=== PATIENT | female | born 1965 | race Caucasian/White ===

== ENCOUNTER → 2018-07-25 | Outpatient (REF) | LOC: M LAB LCGH 11:28 | PROVIDERS: ATTEND Specialist | DX: M17.11 Unilateral primary osteoarthritis, right knee (principal) ==

== ENCOUNTER 2019-12-24 23:13 | Emergency (ER) | payer OTHER ==
[~2019-12-24] VITALS: Ht 162.6 cm; Wt 68.2 kg
[2019-12-25 00:18] LABS: HEMATOCRIT 43.7 % (36.0-47.0); HEMOGLOBIN 14.6 g/dl (12.0-15.5); MEAN CORPUSCULAR HEMOGLOBIN 34.1 pg (27.0-33.0); MEAN CORPUSCULAR HGB CONC 33.4 g/dl (32.0-36.5); MEAN CORPUSCULAR VOLUME 102.1 fl (80.0-96.0); PLATELET COUNT, AUTOMATED 218 10^3/uL (150-450); RED BLOOD COUNT 4.28 10^6/uL (4.00-5.40)
[2019-12-25 00:23] LABS: AMPHETAMINES LEVEL URINE NEGATIVE (NEGATIVE); BARBITURATES URINE NEGATIVE (NEGATIVE); BENZODIAZEPINES URINE NEGATIVE (NEGATIVE); CANNABINOIDS URINE NEGATIVE (NEGATIVE); COCAINE METABOLITE URINE NEGATIVE (NEGATIVE); METHADONE URINE NEGATIVE (NEGATIVE); OPIATES URINE NEGATIVE (NEGATIVE); PHENCYCLIDINE URINE NEGATIVE (NEGATIVE)
[2019-12-25 00:40] LABS: HCG, SERUM QUALITATIVE NEGATIVE (NEGATIVE)
[2019-12-25] MEDS ORDERED: ALPR0.25 PO (00:42)
[2019-12-25] MEDS ORDERED: BAYE325T16 PO (00:42)
[2019-12-25 00:47] LABS: ACETAMINOPHEN LEVEL < 2.0 UG/ML (10.0-30.0); ALBUMIN 3.8 GM/DL (3.2-5.2); ALT/SGPT 98 U/L (12-78); BILIRUBIN,DIRECT 0.1 MG/DL (0.0-0.2); BILIRUBIN,TOTAL 0.2 MG/DL (0.2-1.0); BLOOD UREA NITROGEN 5 MG/DL (7-18); CALCIUM LEVEL 9.1 MG/DL (8.5-10.1); CARBON DIOXIDE LEVEL 31 MEQ/L (21-32); CHLORIDE LEVEL 106 MEQ/L (98-107); CREATININE FOR GFR 0.48 MG/DL (0.55-1.30); ETHYL ALCOHOL (ETHANOL) 0.405 % (0.000-0.010); GLOMERULAR FILTRATION RATE > 60.0 (>51); GLUCOSE, FASTING 104 MG/DL (70-100); POTASSIUM SERUM 3.9 MEQ/L (3.5-5.1); SALICYLATE LEVEL 5.8 MG/DL (5.0-30.0); SODIUM LEVEL 142 MEQ/L (136-145); TOTAL PROTEIN 7.4 GM/DL (6.4-8.2)
[2019-12-25] MEDS ORDERED: hydrOXYzine 50 MG TAB PO ONE (04:45)
[2019-12-25] MEDS ORDERED: LORazepam 2 MG TAB PO PRN (07:15)
[2019-12-25] MEDS ORDERED: THIAMINE 100 MG TAB PO SCH (09:00)
[2019-12-25] MEDS ORDERED: FOLIC ACID 1 MG TAB PO SCH (09:00)
[2019-12-25] MEDS ORDERED: MULTIVITAMINS/MINERALS THERAP 1 TAB PO SCH (09:00)
[2019-12-25] MEDS ORDERED: IBUPROFEN 400 MG TAB PO ONE (11:00)
--- NOTE | 2019-12-25 11:13 | REPVR ---
PROCEDURE INFORMATION: Exam: XR Left Shoulder Exam date and time: 12/25/2019 11:01 AM Age: 54 years old Clinical indication: Pain; Shoulder; Left; Additional info: Fell a few days ago TECHNIQUE: Imaging protocol: XR Left shoulder. Views: 2 or more views. COMPARISON: No relevant prior studies available. FINDINGS: Bones/joints: Acute appearing fracture of the distal left clavicle, with 2 mm of displacement. This appears to be superimposed on a chronic fracture of the distal left clavicle. No dislocation. Mild acromioclavicular joint DJD. Age-indeterminate nondisplaced fracture of the left 5th lateral rib. Soft tissues: Normal. IMPRESSION: 1. Acute fracture of the distal left clavicle. 2. Age-indeterminate fracture of the left 5th rib. Correlate for corresponding acute focal pain. Electronically signed by: Alaina Edge On 12/25/2019 11:13:05 AM
[2019-12-25] MEDS ORDERED: OXAZEPAM 15 MG CAP PO ONE (14:15)
[2019-12-25 17:27] VITALS: BP 168/94
== END 2019-12-25 17:27 | disposition home or self-care (01) ==
LOC: M ED 23:13
DX: F10.120 Alcohol abuse with intoxication, uncomplicated (principal); F17.200 Nicotine dependence, unspecified, uncomplicated; Z79.82 Long term (current) use of aspirin; Z79.899 Other long term (current) drug therapy
CPT/HCPCS: 36415; 73030; 80048; 80076; 80307; 84443; 84703; 85027; 99284; G0480

== ENCOUNTER 2020-08-25 17:46 | Inpatient (IN) | payer OTHER ==
[~2020-08-25] VITALS: Ht 162.6 cm; Wt 82.7 kg
[~2020-08-25 17:46] MED LIST: ALPR0.25 PO; BAYE325T16 PO
[2020-08-25] MEDS ORDERED: LISI-898 PO (18:21)
[2020-08-25] MEDS ORDERED: LEVE500T5 PO (18:21)
[2020-08-25] MEDS ORDERED: NS 1,000 ML IV ONE ×2 (19:10→21:00)
[2020-08-25 19:46] LABS: HEMATOCRIT 43.8 % (36.0-47.0); HEMOGLOBIN 15.1 g/dl (12.0-15.5); MEAN CORPUSCULAR HEMOGLOBIN 35.1 pg (27.0-33.0); MEAN CORPUSCULAR HGB CONC 34.5 g/dl (32.0-36.5); MEAN CORPUSCULAR VOLUME 101.9 fl (80.0-96.0); PLATELET COUNT, AUTOMATED 200 10^3/uL (150-450); WHITE BLOOD COUNT 7.3 10^3/uL (4.0-10.0)
[2020-08-25 20:31] LABS: ACETAMINOPHEN LEVEL < 2.0 UG/ML (10.0-30.0); ALBUMIN 3.5 GM/DL (3.2-5.2); ALT/SGPT 37 U/L (12-78); BILIRUBIN,DIRECT 0.2 MG/DL (0.0-0.2); BILIRUBIN,TOTAL 0.6 MG/DL (0.2-1.0); BLOOD UREA NITROGEN 9 MG/DL (7-18); CALCIUM LEVEL 8.7 MG/DL (8.5-10.1); CARBON DIOXIDE LEVEL 27 MEQ/L (21-32); CHLORIDE LEVEL 97 MEQ/L (98-107); CPK CREATINE PHOSPHOKINASE 87 U/L (26-192); CREATININE FOR GFR 1.57 MG/DL (0.55-1.30); ETHYL ALCOHOL (ETHANOL) 0.356 % (0.000-0.010); GLOMERULAR FILTRATION RATE 36.4 (>51); GLUCOSE, FASTING 95 MG/DL (70-100); POTASSIUM SERUM 3.1 MEQ/L (3.5-5.1); SALICYLATE LEVEL 2.3 MG/DL (5.0-30.0); SODIUM LEVEL 135 MEQ/L (136-145); TOTAL PROTEIN 7.2 GM/DL (6.4-8.2)
[2020-08-25] MEDS ORDERED: POTASSIUM CHLORIDE 10 MEQ SR TABLET PO ONE (20:40)
[2020-08-25] MEDS ORDERED: ONDANSETRON 4MG/2ML VIAL IV ONE (22:15)
[2020-08-25] MEDS ORDERED: NS 500 ML IV ONE (22:35)
[2020-08-26 07:10] LABS: BLOOD UREA NITROGEN 9 MG/DL (7-18); CALCIUM LEVEL 7.6 MG/DL (8.5-10.1); CARBON DIOXIDE LEVEL 27 MEQ/L (21-32); CHLORIDE LEVEL 106 MEQ/L (98-107); CREATININE FOR GFR 0.69 MG/DL (0.55-1.30); ETHYL ALCOHOL (ETHANOL) < 0.003 % (0.000-0.010); GLOMERULAR FILTRATION RATE > 60.0 (>51); GLUCOSE, FASTING 93 MG/DL (70-100); POTASSIUM SERUM 3.6 MEQ/L (3.5-5.1); SODIUM LEVEL 140 MEQ/L (136-145)
[2020-08-26] MEDS ORDERED: LORazepam 2 MG TAB PO PRN ×2 (08:10→20:05)
[2020-08-26] MEDS ORDERED: FOLIC ACID 1 MG TAB PO SCH (09:00)
[2020-08-26] MEDS ORDERED: THIAMINE 100 MG TAB PO SCH (09:00)
[2020-08-26] MEDS ORDERED: MULTIVITAMINS/MINERALS THERAP 1 TAB PO SCH (09:00)
[2020-08-26 09:07] LABS: AMPHETAMINES LEVEL URINE NEGATIVE (NEGATIVE); BARBITURATES URINE NEGATIVE (NEGATIVE); BENZODIAZEPINES URINE NEGATIVE (NEGATIVE); CANNABINOIDS URINE NEGATIVE (NEGATIVE); COCAINE METABOLITE URINE NEGATIVE (NEGATIVE); METHADONE URINE NEGATIVE (NEGATIVE); OPIATES URINE NEGATIVE (NEGATIVE); PHENCYCLIDINE URINE NEGATIVE (NEGATIVE)
[2020-08-26] MEDS ORDERED: METOPROLOL TART 50 MG TAB PO ONE (10:35)
[2020-08-26] MEDS ORDERED: MOM 30ML SUSPENSION UDC PO PRN (14:45)
[2020-08-26] MEDS ORDERED: ACETAMINOPHEN TAB 650MG DOSE (2X325MG) PO PRN (14:45)
[2020-08-26] MEDS ORDERED: MAALOX 30 ML SUSP *UDC PO PRN (14:45)
[2020-08-26] MEDS ORDERED: hydrALAZINE 20MG/ML 1ML VIAL (J0360 PER 20MG) IV STA (14:46)
--- NOTE | 2020-08-26 14:48 | HPEPDOC ---
[facility] Medical History & Physical Date of Admission Aug 26, 2020 Date of Service: Aug 26, 2020 History and Physical CHIEF COMPLAINT: Acute alcohol withdrawal HISTORY OF PRESENT ILLNESS: 54-year-old female with history of alcohol use disorder, gastric to [facility] from [facility] after she verbalized suicidal ideation. Patient reports drinking heavily for the past several days after her boyfriend's brother moved in. Patient reports drinking approximately 6 small whiskey bottles, along with an unspecified amount of beer. Last drink was in 07/25/20. Patient denies prior seizures, delirium tremens. Patient was evaluated by psychiatry in the ER and deemed safe for discharge. However, prior to discharge, noted noticed to have hypertensive urgency and worsening symptoms of acute alcohol withdrawal. Hospitalist service will be admitting patient for treatment of hypertensive urgency and acute alcohol withdrawal. On chart review, patient was noted to have hypokalemia and acute injury which have resolved prior to admission from ER. PAST MEDICAL HISTORY: Hypertension Etoh use disorder PAST SURGICAL HISTORY: R knee replacement SOCIAL HISTORY: etoh use disorder occasional smoker denies illicit drug use FAMILY HISTORY: reviewed with, no pertinent history was provided by the patient. ALLERGIES: Please see below. REVIEW OF SYSTEMS: 10 point ROS was completed, relevant findings are noted in the HPI HOME MEDICATIONS: Please see below. PHYSICAL EXAMINATION: VITAL SIGNS: please see below General: NAD, comfortable HEENT: PERRLA, EOMI, sclerae clear Neck: supple, normal ROM, no JVD Respiratory: lungs CTAB, no wheeze, no rales, no crackles CVS: RRR, normal S1, S2, no murmurs Abdo: soft, no masses, no hepatosplenomegaly, BS+, no rebound tenderness Extremities: no edema, pulses 2+ MSK: no joint deformities, normal ROM Neuro: no focal neuro deficits, moving all 4 extremities, CN2-12 intact. Strength 5/5 in all 4 extremities. No nystagmus. Psych: calm, cooperative, AAO x 3. Visibly tremulous, anxious. LABORATORY DATA: See below. MICROBIOLOGY: Please see below. ASSESSMENT: 54-year-old female with history of alcohol use disorder, gastric to [facility] from [facility] after she verbalized suicidal ideation. Patient reports drinking heavily for the past several days after her boyfriend's brother moved in. Patient reports drinking approximately 6 small whiskey bottles, along with an unspecified amount of beer. Last drink was in 07/25/20. Patient denies prior seizures, delirium tremens. Patient was evaluated by psychiatry in the ER and deemed safe for discharge. However, prior to discharge, noted noticed to have hypertensive urgency and worsening symptoms of acute alcohol withdrawal. Hospitalist service will be admitting patient for treatment of hypertensive urgency and acute alcohol withdrawal. On chart review, patient was noted to have hypokalemia and acute injury which have resolved prior to admission from ER. . PLAN: #Acute etoh withdrawal - admit to [facility], with telemetry - [facility] protocol - seizure precautions - c/w b12, folate, MVTs, thiamine - etoh cessation resources on DC #HTN urgency - BP elevated likely 2/2 etoh withdrawa - takes lisinopril 5 mg daily, increase to 10 mg daily - c/w serax #DVT ppx: - heparin 5000 units q8h SC. Vital Signs Vital Signs Date Time Temp Pulse Resp B/P (MAP) Pulse Ox O2 Delivery O2 Flow Rate FiO2 08/26/20 12:37 20 197/114 (141) 96 Room Air 08/26/20 11:00 85 08/25/20 18:21 96.9 Laboratory Data Labs 24H Laboratory Tests 2 08/25/20 19:37: Nucleated Red Blood Cells % (auto) 0.0, Anion Gap 11, Glomerular Filtration Rate 36.4L, Calcium Level 8.7, Total Bilirubin 0.6, Direct Bilirubin 0.2, Aspartate Amino Transf (AST/SGOT) 52H, Alanine Aminotransferase (ALT/SGPT) 37, Alkaline Phosphatase 95, Total Creatine Kinase 87, Total Protein 7.2, Albumin 3.5, Albumin/Globulin Ratio 0.9L, Thyroid Stimulating Hormone (TSH) 4.280H, Salicyl ates Level 2.3L, Acetaminophen Level < 2.0L, Ethyl Alcohol Level 0.356H 08/26/20 06:29: Anion Gap 7L, Glomerular Filtration Rate > 60.0, Calcium Level 7.6L, Ethyl Alcohol Level < 0.003 08/26/20 08:27: Urine Color JALEN, Urine Appearance HAZY, Urine pH 5.0, Urine Specific [place] 1.018, Urine Protein NEGATIVE, Urine Glucose (UA) NEGATIVE, Urine Ketones NEGATI VE, Urine Blood 1+H, Urine Nitrite NEGATIVE, Urine Bilirubin NEGATIVE, Urine Urobilinogen 2.0H, Urine Leukocyte Esterase NEGATIVE, Urine WBC (Auto) 1, Urine RBC (Auto) 0, Urine Hyaline Casts (Auto) 0, Urine Bacteria (Auto) NEGATIVE, Urine Squamous Epithelial Cells 1, Urine Mucus (Auto) SMALL, Urine Sperm (Auto) CBC/BMP Laboratory Tests 08/25/20 19:37 08/26/20 06:29 Home Medications Scheduled Lisinopril (Lisinopril) 5 Mg Tablet, 5 MG PO DAILY Sertraline HCl (Sertraline HCl) 50 Mg Tablet, 50 MG PO DAILY levETIRAcetam (levETIRAcetam) 500 Mg Tablet, 500 MG PO BID Allergies Coded Allergies: No Known Allergies (Unverified , 12/24/19) REYES JULIO MD Aug 26, 2020 14:48
[2020-08-26] MEDS ORDERED: SERT50TA29 PO (14:59)
[2020-08-26] MEDS ORDERED: LORazepam 2 MG/ML VIAL IV ONE (15:00)
[2020-08-26] MEDS: amLODIPine 5 MG TAB PO SCH (16:12)
[2020-08-26 16:37] LABS: RSV AMPLIFICATION NEGATIVE (NEGATIVE)
[2020-08-26 17:20] VITALS: BP 168/97
--- NOTE | 2020-08-26 17:39 | ECGEPIP ---
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
[2020-08-26 18:23] VITALS: BP 140/88
[2020-08-26 20:00] VITALS: BP 134/90
[2020-08-26] MEDS: DOCUSATE SODIUM 100MG CAPSULE PO SCH (20:33)
[2020-08-26] MEDS: levETIRAcetam 250MG TABLET (KEPPRA) PO SCH (21:59)
[2020-08-26] MEDS: OXAZEPAM 10 MG CAP PO SCH (21:59)
[2020-08-26] MEDS: HEPARIN SOD (PORCINE) 5000UNITS/ML 1ML VIAL/SYRINGE SC SCH (21:59)
[2020-08-26 22:00] VITALS: BP 128/82
[2020-08-26] MEDS: THIAMINE 100 MG TAB PO SCH (22:00)
[2020-08-27 00:17] VITALS: BP 124/84
[2020-08-27 04:00] VITALS: BP 121/86
[2020-08-27] MEDS: OXAZEPAM 10 MG CAP PO SCH (06:04)
[2020-08-27] MEDS: HEPARIN SOD (PORCINE) 5000UNITS/ML 1ML VIAL/SYRINGE SC SCH (06:05)
[2020-08-27 06:21] LABS: BASO % 0.9 % (0.0-1.0); EOS # 0.1 10^3/uL (0.0-0.5); EOS % 2.1 % (0.0-3.0); HEMATOCRIT 33.6 % (36.0-47.0); LYMPH # 1.4 10^3/uL (1.5-5.0); LYMPH % 41.5 % (24.0-44.0); MEAN CORPUSCULAR HEMOGLOBIN 34.8 pg (27.0-33.0); MEAN CORPUSCULAR HGB CONC 33.3 g/dl (32.0-36.5); MEAN CORPUSCULAR VOLUME 104.3 fl (80.0-96.0); MONO # 0.3 10^3/uL (0.0-0.8); MONO % 8.9 % (2.0-8.0); NEUTROPHILS # 1.6 10^3/uL (1.5-8.5); PLATELET COUNT, AUTOMATED 128 10^3/uL (150-450); RED BLOOD COUNT 3.22 10^6/uL (4.00-5.40); WHITE BLOOD COUNT 3.4 10^3/uL (4.0-10.0)
[2020-08-27 06:50] LABS: ALBUMIN 2.6 GM/DL (3.2-5.2); ALT/SGPT 28 U/L (12-78); BILIRUBIN,TOTAL 0.7 MG/DL (0.2-1.0); BLOOD UREA NITROGEN 7 MG/DL (7-18); CALCIUM LEVEL 8.2 MG/DL (8.5-10.1); CARBON DIOXIDE LEVEL 28 MEQ/L (21-32); CHLORIDE LEVEL 105 MEQ/L (98-107); CREATININE FOR GFR 0.44 MG/DL (0.55-1.30); GLOMERULAR FILTRATION RATE > 60.0 (>51); GLUCOSE, FASTING 84 MG/DL (70-100); MAGNESIUM LEVEL 1.7 MG/DL (1.8-2.4); POTASSIUM SERUM 3.7 MEQ/L (3.5-5.1); SODIUM LEVEL 139 MEQ/L (136-145); TOTAL PROTEIN 5.6 GM/DL (6.4-8.2)
[2020-08-27 07:05] LABS: HEMOGLOBIN 11.2 g/dl (12.0-15.5)
[2020-08-27 07:51] VITALS: BP 140/90
[2020-08-27] MEDS ORDERED: SERTRALINE HCL 50 MG TAB PO SCH (09:00)
[2020-08-27] MEDS ORDERED: MULTIVITAMINS/MINERALS THERAP 1 TAB PO SCH (09:00)
[2020-08-27] MEDS ORDERED: FOLIC ACID 1 MG TAB PO SCH (09:00)
[2020-08-27] MEDS: levETIRAcetam 250MG TABLET (KEPPRA) PO SCH (09:35)
[2020-08-27] MEDS: amLODIPine 5 MG TAB PO SCH (09:35)
[2020-08-27 09:36] VITALS: BP 140/90
[2020-08-27] MEDS: THIAMINE 100 MG TAB PO SCH (09:36)
[2020-08-27] MEDS: DOCUSATE SODIUM 100MG CAPSULE PO SCH (09:36)
--- NOTE | 2020-08-27 11:10 | DS.PDOC ---
Discharge Summary General Date of Admission Aug 26, 2020 at 14:45 Date of Discharge 08/27/20 Discharge Summary PROCEDURES PERFORMED DURING STAY: [None]. ADMITTING DIAGNOSES: 1. . DISCHARGE DIAGNOSES: 1. . COMPLICATIONS/CHIEF COMPLAINT: Alcohol Withdrawl, Hypertensive Urgency. HISTORY OF PRESENT ILLNESS: . HOSPITAL COURSE: . DISCHARGE MEDICATIONS: Please see below. ALLERGIES: Please see below. PHYSICAL EXAMINATION ON DISCHARGE: VITAL SIGNS: Please see below. GENERAL: HEENT: NECK: CARDIOVASCULAR EXAMINATION: RESPIRATORY EXAMINATION: ABDOMINAL EXAMINATION: EXTREMITIES: SKIN: NEUROLOGICAL EXAMINATION: PSYCHIATRIC EXAMINATION: LABORATORY DATA: Please see below. IMAGING: PROGNOSIS: ACTIVITY: [As tolerated]. DIET: DISCHARGE PLAN: DISPOSITION: . DISCHARGE INSTRUCTIONS: 1. . ITEMS TO FOLLOWUP ON ON OUTPATIENT: 1. . DISCHARGE CONDITION: [Stable]. TIME SPENT ON DISCHARGE: Greater than minutes. Vital Signs/I&Os Vital Signs Date Time Temp Pulse Resp B/P (MAP) Pulse Ox O2 Delivery O2 Flow Rate FiO2 08/27/20 09:36 140/90 08/27/20 09:35 82 08/27/20 07:51 97.5 18 96 Room Air I&O- Last 24 Hours up to 6 AM 08/27/20 06:00 Intake Total 0 ml Output Total 1000 ml Balance -1000 ml Laboratory Data Labs 24H Laboratory Tests 2 08/26/20 15:38: Coronavirus (COVID-19)(PCR) NEGATIVE, Influenza Type A (RT-PCR) NEGATIVE, I nfluenza Type B (RT-PCR) NEGATIVE, Respiratory Syncytial Virus (PCR) NEGATIVE 08/27/20 05:58: Immature Granulocyte % (Auto) 0.6, Neutrophils (%) (Auto) 46.0, Lymphocytes (%) (Auto) 41.5, Monocytes (%) (Auto) 8.9H, Eosinophils (%) (Auto) 2.1, Basophils (%) (Auto) 0.9, Neutrophils # (Auto) 1.6, Lymphocytes # (Auto) 1.4L, Monocytes # (Auto) 0.3, Eosinophils # (Auto) 0.1, Basophils # (Auto) 0.0, Nucleated Red Blood Cells % (auto) 0.0, Anion Gap 6L, Glomerular Filtration Rate > 60.0, Calcium Level 8.2L, Magnesium Level 1.7L, Total Bilirubin 0.7, Aspartate Amino Transf (AST/SGOT) 36, Alanine Aminotransferase (ALT/SGPT) 28, Alkaline Phosphatase 79, Total Protein 5.6#L, Albumin 2.6#L, Albumin/Globulin Ratio 0.9L CBC/BMP Laboratory Tests 08/27/20 05:58 Discharge Medications Scheduled Lisinopril (Lisinopril) 5 Mg Tablet, 5 MG PO DAILY, (Reported) Sertraline HCl (Sertraline HCl) 50 Mg Tablet, 50 MG PO DAILY, (Reported) levETIRAcetam (levETIRAcetam) 500 Mg Tablet, 500 MG PO BID, (Reported) Allergies Coded Allergies: No Known Allergies (Unverified , 12/24/19) REYES JULIO MD Aug 27, 2020 11:10
[2020-08-27] MEDS ORDERED: LEVE500T5 PO (11:22)
[2020-08-27] MEDS ORDERED: AMLO1TAB24 PO (11:22)
[2020-08-27] MEDS ORDERED: LISI10TA22 PO (11:22)
[2020-08-27] MEDS ORDERED: FOLI1TAB11 PO (11:22)
[2020-08-27] MEDS ORDERED: THIA100TA PO (11:22)
[2020-08-27] MEDS ORDERED: OXAZ10CA3 PO (11:22)
[2020-08-27] MEDS ORDERED: VITMTA PO (11:22)
== END 2020-08-27 11:50 | disposition home or self-care (01) | DRG 199 ==
LOC: M ED 17:46 → M ED INP 08-26 14:44 → OBSVTOIN 08-26 14:45 → ENRESERV 08-26 15:17 → ENRESERVTM 08-26 16:48 → M PCU 08-26 17:17
PROVIDERS: ADMIT Family Medicine; ATTEND Family Medicine
DX: I16.0 Hypertensive urgency (principal); N17.9 Acute kidney failure, unspecified; F10.139 Alcohol abuse with withdrawal, unspecified; Z96.651 Presence of right artificial knee joint; F17.210 Nicotine dependence, cigarettes, uncomplicated; E87.6 Hypokalemia; Z79.899 Other long term (current) drug therapy; I10 Essential (primary) hypertension

== ENCOUNTER → 2021-05-22 | Outpatient (REF) | payer OTHER ==
[~2021-05-22] MED LIST changes: +AMLO1TAB24 PO; +FOLI1TAB11 PO; +LEVE500T5 PO; +LISI10TA22 PO; +LISI5TAB11 PO; +OXAZ10CA3 PO; +SERT50TA29 PO; +THIA100TA PO; +VITMTA PO
== END ==
LOC: M SMT 17:12 → M SFHCDERM 17:12
PROVIDERS: ATTEND Dermatology
DX: D03.61 Melanoma in situ of right upper limb, including shoulder (principal)

== ENCOUNTER → 2021-11-24 | Outpatient (REF) | LOC: M RAD 10:09 | PROVIDERS: ATTEND Internal Medicine | DX: M51.36 Other intervertebral disc degeneration, lumbar region (principal) ==

== ENCOUNTER 2022-01-25 06:08 | Day surgery (SDC) | payer OTHER ==
[~2022-01-25] VITALS: Ht 160 cm; Wt 81.2 kg
[~2022-01-25 06:08] MED LIST changes: +BSS IRRIG/VANCO(10MG)/TOBRA(5MG)/EPINEPH(1:1000-0.5CC)500ML BAG-ORONLY IR ONE; +CYCLOPENTOLATE 1% OPHTH SOLN 2 ML BTL OS SCH; +LIDOCAINE 3.5 % 1ML OPHTH TOPICAL GEL OU ONE; +OFLOXACIN 0.3 % (OCUFLOX) OPTH SOL 5ML OS ONE; +PHENYLEPHRINE 2.5% OPHTH SOL 2ML OS SCH; +PHENYLEPHRINE HCL 10 % OPHTH. SOL 5ML OS PRN; +TROPICAMIDE 1% OPHTH SOLN 2ML OS SCH; +VITA200016 PO
[2022-01-25] MEDS ORDERED: LIDOCAINE 1% SDV 5ML VIAL As Ordered ONE (06:38)
[2022-01-25] MEDS ORDERED: CEFUROXIME 1MG/0.1ML INTRACAMERAL INJ As Ordered ONE (06:39)
[2022-01-25] MEDS ORDERED: MIDAZOLAM INJ 2MG/2ML VIAL (J2250 PER 1MG) As Ordered ONE (07:31)
[2022-01-25 08:31] VITALS: BP 116/68
== END 2022-01-25 12:39 | disposition home or self-care (01) ==
LOC: M SDC 06:08
PROVIDERS: ATTEND Ophthalmology
DX: H25.12 Age-related nuclear cataract, left eye (principal)
CPT/HCPCS: 66984; J0697; J2250; V2632

== ENCOUNTER 2022-06-14 08:54 | Day surgery (SDC) | payer OTHER ==
[~2022-06-14] VITALS: Ht 162.6 cm; Wt 80.9 kg
[~2022-06-14 08:54] MED LIST changes: +CEFUROXIME 1MG/0.1ML INTRACAMERAL INJ As Ordered ONE; -CYCLOPENTOLATE 1% OPHTH SOLN 2 ML BTL OS SCH; +CYCLOPENTOLATE 1% OPHTH SOLN 2ML BTL OD SCH; +LIDOCAINE 1% SDV 5ML VIAL As Ordered ONE; +MIDAZOLAM INJ 2MG/2ML VIAL As Ordered ONE; +NALT50TA4 PO; +OFLOXACIN 0.3 % (OCUFLOX) OPTH SOL 5ML OD ONE; -OFLOXACIN 0.3 % (OCUFLOX) OPTH SOL 5ML OS ONE; +OYST1TAB PO; +PHENYLEPHRINE 10% OPHTH SOL 5ML OD PRN; +PHENYLEPHRINE 2.5% OPHTH SOL 2ML OD SCH; -PHENYLEPHRINE 2.5% OPHTH SOL 2ML OS SCH; -PHENYLEPHRINE HCL 10 % OPHTH. SOL 5ML OS PRN; +QUET50TA4 PO; +TROPICAMIDE 1% OPHTH SOLN 15ML OD SCH; -TROPICAMIDE 1% OPHTH SOLN 2ML OS SCH; +fentaNYL 100 MCG/2 ML INJECTION As Ordered ONE
[2022-06-14 11:30] VITALS: BP 126/62
== END 2022-06-14 15:30 | disposition home or self-care (01) ==
LOC: M SDC 08:54
PROVIDERS: ATTEND Ophthalmology
DX: H25.11 Age-related nuclear cataract, right eye (principal); I10 Essential (primary) hypertension; M81.0 Age-related osteoporosis without current pathological fracture; F41.9 Anxiety disorder, unspecified; F32.A Depression, unspecified; F17.210 Nicotine dependence, cigarettes, uncomplicated; R56.9 Unspecified convulsions; Z79.899 Other long term (current) drug therapy
CPT/HCPCS: 66984; J0697; J2250; J3010; V2632